=== PATIENT | male | born 1990 | race Caucasian/White ===

== ENCOUNTER 2016-10-25 21:52 | Emergency (ER) | payer SELFPAY ==
[~2016-10-25] VITALS: Ht 170.2 cm; Wt 75.0 kg
[2016-10-25 22:14] VITALS: BP 143/65; PULSE 93; RESP 18; TEMP 98.5; O2SAT 99
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
[2016-10-25] MEDS ORDERED: SODIUM CHLOR 0.9% 1000 ML INJ 1,000 ML IV ONE (22:45)
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
[2016-10-25 23:11] LABS: BASOPHIL % 0.3 % (0.0-2.0); EOSINOPHIL % 0.5 % (0.0-4.0); HEMATOCRIT 44.3 % (39.0-51.0); HEMO FLAGS DIFF FINAL; LYMPH % 19.2 % (9.0-44.0); LYMPHOCYTE # 1.6 TH/MM3 (1.0-4.8); MEAN CELL VOLUME 86.9 FL (80.0-100.0); MEAN CORPUSCULAR HEMOGLOBIN 30.5 PG (27.0-34.0); MEAN CORPUSCULAR HGB CONC 35.1 % (32.0-36.0); MONO % 7.2 % (0.0-8.0); NEUT % 72.8 % (16.0-70.0); PLATELET COUNT 201 TH/MM3 (150-450); RED CELL DISTRIBUTION WIDTH 13.3 % (11.6-17.2); WHITE BLOOD COUNT 8.3 TH/MM3 (4.0-11.0)
[2016-10-25 23:19] LABS: APTT (PATIENT) 25.2 SEC (24.3-30.1); PROTHROMBIN TIME - PATIENT 11.4 SEC (9.8-11.6)
[2016-10-25 23:28] LABS: ALCOHOL 206 MG/DL (0-5); ALT (GPT) 31 U/L (12-78); ANION GAP 13 MEQ/L (5-15); AST (GOT) 29 U/L (15-37); BICARBONATE 22.7 MEQ/L (21.0-32.0); BLOOD UREA NITROGEN 12 MG/DL (7-18); CHLORIDE 97 MEQ/L (98-107); GLOMERULAR FILTRATION RATE 91 ML/MIN (>89); SODIUM (NA) 133 MEQ/L (136-145)
[2016-10-25 23:29] LABS: POTASSIUM 2.8 MEQ/L (3.5-5.1)
[2016-10-25 23:30] LABS: ALKALINE PHOSPHATASE 121 U/L (45-117); TOTAL BILIRUBIN ADULT 0.8 MG/DL (0.2-1.0)
[2016-10-25] MEDS ORDERED: IOHEXOL 350 MG/ML 10 ML VIAL (for RAD DIAG) IV ONE (23:34)
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
[2016-10-26] MEDS ORDERED: TETANUS/DIPHTHERIA TOXOID ADULT 0.5 ML VIAL IM ONE (00:15)
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
== END 2016-10-26 00:50 | disposition home or self-care (01) ==
LOC: NEPD 21:52
DX: S00.83XA Contusion of other part of head, initial encounter (principal); S09.90XA Unspecified injury of head, initial encounter; S01.01XA Laceration without foreign body of scalp, initial encounter; S01.111A Laceration without foreign body of right eyelid and periocular area, initial encounter; S50.312A Abrasion of left elbow, initial encounter; S80.211A Abrasion, right knee, initial encounter; K02.9 Dental caries, unspecified; Y04.0XXA Assault by unarmed brawl or fight, initial encounter; Z23 Encounter for immunization
CPT/HCPCS: 12001; 12011; 70450; 70486; 71260; 72125; 72128; 72131; 73080; 73564; 74177; 80053; 80307; 85025; 85610; 85730; 90471; 90714; 99285; J7030; Q9967

== ENCOUNTER 2016-10-28 12:29 | Emergency (ER) | payer SELFPAY ==
[2016-10-28 12:36] VITALS: BP 119/66; PULSE 70; RESP 20; TEMP 98.4; O2SAT 96
--- NOTE | 2016-10-28 13:09 | PD ---
HPI Chief Complaint: Wound Check Time Seen by Provider: 12:45 Travel History International Travel<30 days: No Contact w/Intl Traveler<30days: No History of Present Illness HPI 25 Y/O male here with head laceration 3 days ago. Herre for wound check and wants to know when his sutures can be removed. No Acute problems. PFSH Social History Alcohol Use: Yes Tobacco Use: Yes (CIGARS ) Substance Use: No Allergies-Medications (Allergen,Severity, Reaction): Coded Allergies: No Known Allergies (Unverified , 10/25/16) Reported Meds & Prescriptions Reported Meds & Active Scripts Active No Active Prescriptions or Reported Medications Review of Systems Except as stated in HPI: all other systems reviewed are Neg General / Constitutional: No: Fever Eyes: No: Visual changes HENT: No: Headaches Cardiovascular: No: Chest Pain or Discomfort Respiratory: No: Shortness of Breath Gastrointestinal: No: Abdominal Pain Genitourinary: No: Dysuria Musculoskeletal: No: Pain Skin: No Rash Neurologic: No: Weakness Psychiatric: No: Depression Endocrine: No: Polydipsia Hematologic/Lymphatic: No: Easy Bruising Physical Exam Narrative GENERAL: NAD SKIN: Warm and dry. Well healing Laceration to Left posterior scalp with [address] HEAD: Atraumatic. Normocephalic. EYES: Pupils equal and round. No scleral icterus. No injection or drainage. ENT: No nasal bleeding or discharge. Mucous membranes pink and moist. Pharynx Clear. NECK: Trachea midline. CARDIOVASCULAR: Regular rate and rhythm. RESPIRATORY: No accessory muscle use. MUSCULOSKELETAL: Extremities without clubbing, cyanosis, or edema. No obvious deformities. NEUROLOGICAL: Awake and alert. No obvious cranial nerve deficits. Motor grossly within normal limits. Five out of 5 muscle strength in the arms and legs. Normal speech. PSYCHIATRIC: Appropriate mood and affect; insight and judgment normal. Data Data Last Documented VS Vital Signs Date Time Temp Pulse Resp B/P (MAP) Pulse Ox O2 Delivery O2 Flow Rate FiO2 10/28/16 12:36 98.4 70 20 119/66 (83) 96 Room Air MDM Medical Decision Making Medical Screen Exam Complete: Yes Emergency Medical Condition: No Differential Diagnosis Head Laceration. Head Injury. Wound Check. Narrative Course Medical Screening Exam Performed. No Emergent Problem is Identified. Follow-up as needed. Scripts No Active Prescriptions or Reported Meds Condition: Stable Clifton Melendez. PA Oct 28, 2016 13:08
== END 2016-10-28 13:31 | disposition left against medical advice (07) ==
LOC: NED 12:29
DX: S01.01XD Laceration without foreign body of scalp, subsequent encounter (principal); X58.XXXD Exposure to other specified factors, subsequent encounter
CPT/HCPCS: 99281

== ENCOUNTER 2016-11-01 08:29 | Emergency (ER) | payer SELFPAY ==
[2016-11-01 08:31] VITALS: BP 125/59; PULSE 84; RESP 15; TEMP 98.2; O2SAT 99
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
== END 2016-11-01 09:12 | disposition home or self-care (01) ==
LOC: NEPK 08:29
DX: Z48.02 Encounter for removal of sutures (principal)
CPT/HCPCS: 99281